=== PATIENT | male | born 1935 ===

== ENCOUNTER 2017-04-29 13:23 | Emergency (ER) | payer OTHER ==
[2017-04-29] MEDS ORDERED: Lidocaine 1% w Epi 1:100,000 Inj INJ STA (14:18)
[2017-04-29] MEDS ORDERED: Tetanus/Diphtheria Toxoids 0.5 ml Syringe IM ONE ×2 (14:18→15:11)
[2017-04-29] MEDS ORDERED: Bacitracin 500 Units/gm Oint Foilpak UD TOP STA (14:18)
[2017-04-29] MEDS ORDERED: Bacitracin 500 Units/gm Oint Foilpak UD ONE (14:25)
[2017-04-29] MEDS ORDERED: Lidocaine 2% w Epi 1:100,000 Inj IJ ONE (14:26)
--- NOTE | 2017-04-29 15:32 | C.PDOC ---
History Of Present Illness 81 year old male presents to the ER with a complaint of a laceration after he was trying to reach for something on the street and cut his left hand on a piece of glass at 14:00 yesterday. Patient did not think it was serious at the time and covered it up; however, wound is still bleeding which prompted evaluation of laceration. Denies weakness or numbness. Time Seen by Provider: 04/29/17 13:38 Chief Complaint (Nursing): Abnormal Skin Integrity History Per: Patient History/Exam Limitations: no limitations Onset/Duration Of Symptoms: Days Current Symptoms Are (Timing): Still Present Location Of Injury: Left: Hand Quality Of Symptoms: Other (Laceration) Recent travel outside of the [place]: No Past Medical History Reviewed: Historical Data, Nursing Documentation, Vital Signs Vital Signs: Last Vital Signs Temp 97.9 F 04/29/17 15:47 Pulse 74 04/29/17 15:47 Resp 18 04/29/17 15:47 BP 129/74 04/29/17 15:47 Pulse Ox 97 04/29/17 19:01 - Medical History PMH: Diabetes, HTN, Hypercholesterolemia Surgical History: No Surg Hx Family History: States: Unknown Family Hx - Social History Hx Tobacco Use: No Hx Alcohol Use: No Hx Substance Use: No - Immunization History Hx Tetanus Toxoid Vaccination: Yes (2014) Hx Influenza Vaccination: Yes (2 months) Hx Pneumococcal Vaccination: Yes (2 month) Review Of Systems Skin: Positive for: Other (Laceration) Neurological: Negative for: Weakness, Numbness Physical Exam - Physical Exam Appears: Non-toxic, No Acute Distress Skin: Normal Color, Warm, Dry Head: Atraumatic, Normacephalic Extremity: Capillary Refill (<2 seconds), Other (3.5cm laceration over dorsum of left hand starting from the proximal phalanx of the 2nd finger extending to the 2nd MCP joint, actively bleeding, able to move fingers) Pulses: Left Radial: Normal, Right Radial: Normal Neurological/Psych: Oriented x3, Normal Speech, Normal Cognition, Normal Motor, Normal Sensation ED Course And Treatment O2 Sat by Pulse Oximetry: 97 (Room air) Pulse Ox Interpretation: Normal Progress Note: Patient tolerated laceration repair without difficulty, bacitracin applied, patient placed in finger splint. Patient started on keflex and instructed to follow up on Thursday for wound check. Tetanus vaccination administered. Laceration - Laceration Repair Left hand Wound Length (In cm): 3.5 Description Of Wound: Irregular Wound Cleansed With: Sterile Saline (2 liters) Anesthesia: Lidocaine 1% Wound Examination: Irrigated With Saline (2 liters), No FB With Wound Exploration, No Tendon Injury With Wound Exploration Wound Closure: Suture (x 6) Suture Technique And Material Used: Nylon (4-0) Wound Complexity: Intermediate Disposition - Disposition Disposition: HOME/ ROUTINE Disposition Time: 15:30 Condition: STABLE Additional Instructions: Follow up with PMD within 1-2 days. Return to ED if feel worse. Return to ED for wound check in 2 days. Prescriptions: Bacitracin OINT 1 applic TP TID #45 g Cephalexin [cephalexin] 500 mg PO Q6 #28 cap Instructions: Care For Your Stitches (ED), Laceration (ED) Forms: [employer] (Chinese) Print Language: AZERI - Clinical Impression Clinical Impression: Laceration - Scribe Statement The provider has reviewed the documentation as recorded by the Scribarturo Guidry All medical record entries made by the Otiliaibarturo were at my direction and personally dictated by me. I have reviewed the chart and agree that the record accurately reflects my personal performance of the history, physical exam, medical decision making, and the department course for this patient. I have also personally directed, reviewed, and agree with the discharge instructions and disposition.
[2017-04-29 15:48] VITALS: BP 129/74; PULSE 74; RESP 18; TEMP 97.9
[2017-04-29 18:54] VITALS: O2SAT 97
== END 2017-04-29 15:49 | disposition home or self-care (01) ==
LOC: C.ER 13:23
DX: S61.412A Laceration without foreign body of left hand, initial encounter (principal); W25.XXXA Contact with sharp glass, initial encounter; Y93.89 Activity, other specified; Y92.410 Unspecified street and highway as the place of occurrence of the external cause; Z23 Encounter for immunization

== ENCOUNTER 2017-05-01 10:50 | Emergency (ER) | payer OTHER ==
[2017-05-01] MEDS ORDERED: Bacitracin 500 Units/gm Oint Foilpak UD ONE (11:32)
[2017-05-01 12:42] VITALS: BP 135/70; PULSE 67; RESP 20; TEMP 97.9; O2SAT 97
--- NOTE | 2017-05-01 12:44 | C.PDOC ---
History Of Present Illness 81 year old male presents to the ED for a wound check. Patient was evaluated in this ED on 04/29 after he sustained a laceration to his left index finger. Patient received sutures to the area and was discharged with a finger splint. Patient has the finger splint intact, but notes he experiences a "poking pain" even with slight finger movement. Patient denies fever, chills, or discharge from the area. Time Seen by Provider: 05/01/17 11:25 Chief Complaint (Nursing): Abnormal Skin Integrity History Per: Patient History/Exam Limitations: no limitations Onset/Duration Of Symptoms: Days (2) Current Symptoms Are (Timing): Still Present Location Of Injury: Left: Hand (index finger) Quality Of Symptoms: Painful Additional History Per: Patient Past Medical History Reviewed: Historical Data, Nursing Documentation, Vital Signs Vital Signs: Last Vital Signs Temp 97.9 F 05/01/17 12:41 Pulse 67 05/01/17 12:41 Resp 20 05/01/17 12:41 BP 135/70 05/01/17 12:41 Pulse Ox 97 05/01/17 15:18 - Medical History PMH: Diabetes, HTN, Hypercholesterolemia Surgical History: No Surg Hx Family History: States: Unknown Family Hx - Social History Hx Tobacco Use: No Hx Alcohol Use: No Hx Substance Use: No - Immunization History Hx Tetanus Toxoid Vaccination: Yes (2014) Hx Influenza Vaccination: Yes (2 months) Hx Pneumococcal Vaccination: Yes (2 month) Review Of Systems Constitutional: Negative for: Fever, Chills Musculoskeletal: Positive for: Other (wound check on left index finger ) Physical Exam - Physical Exam Appears: Non-toxic, No Acute Distress Skin: Normal Color, Warm, Dry Extremity: No Tenderness, Capillary Refill (less than 2 seconds ), No Swelling, Other (finger splint in place on left index finger ) Neurological/Psych: Oriented x3, Normal Speech, Normal Cognition, Normal Sensation ED Course And Treatment O2 Sat by Pulse Oximetry: 97 (on RA) Pulse Ox Interpretation: Normal Progress Note: Left hand 2nd digit XR ordered. XR results show no evidence of fracture or foreign body. Finger splint was removed. Sutures are intact and wound is healing with no signs of infection or drainage. Wound was cleaned and bacitracin applied to the area. Area was covered and finger splint was reapplied. On reassessment, patient is resting comfortably and showing no signs of distress. Patient is stable for discharge and is advised to follow up in [place] 2 days for wound check. Disposition - Disposition Referrals: Carlos Monet MD [Staff Provider] - Disposition: HOME/ ROUTINE Disposition Time: 12:42 Condition: STABLE Additional Instructions: Follow up with Hand specialist within 1-2 days. Return to Ed if feel worse. Return to ED in 2 days for wound check. Instructions: Acute Wound Care (ED) Forms: [employer] (Guyanese) - Clinical Impression Clinical Impression: Visit for wound check - PA / ADAPTIVE PHYSICAL EDUCATION SPECIALIST / Resident Statement MD/DO has reviewed & agrees with the documentation as recorded. - Scribe Statement The provider has reviewed the documentation as recorded by the Scribe (Alicia East) All medical record entries made by the Scribe were at my direction and personally dictated by me. I have reviewed the chart and agree that the record accurately reflects my personal performance of the history, physical exam, medical decision making, and the department course for this patient. I have also personally directed, reviewed, and agree with the discharge instructions and disposition.
--- NOTE | 2017-05-01 13:21 | RAD ---
PROCEDURE: Left Index finger radiographs. HISTORY: laceration COMPARISON: None. TECHNIQUE: AP radiograph of the left hand, as well as spot oblique and lateral images of index finger were obtained. FINDINGS: LEFT INDEX FINGER: Normal left index finger, without fracture or focal lesion. No fracture seen elsewhere. JOINTS: Osteoarthritis of DIP 2 through 5 and IP 1. Osteoarthritis of PIP 2. MCP joints are unremarkable. SOFT TISSUES: No radiopaque foreign body OTHER FINDINGS: None. IMPRESSION: Osteoarthritis of multiple interphalangeal joints. No evidence of fracture or radiopaque foreign body.
== END 2017-05-01 13:04 | disposition home or self-care (01) ==
LOC: C.ER 10:50
DX: Z51.89 Encounter for other specified aftercare (principal)

== ENCOUNTER 2017-05-03 11:14 | Emergency (ER) | payer OTHER ==
[2017-05-03 11:19] VITALS: BP 161/71; PULSE 66; RESP 18; TEMP 97.3; O2SAT 97
[2017-05-03] MEDS ORDERED: Bacitracin 500 Units/gm Oint Foilpak UD ONE (11:32)
--- NOTE | 2017-05-03 11:39 | C.PDOC ---
History Of Present Illness 81 year old male presents to the ED for a wound check. Patient was evaluated in this ED on 04/29 after he sustained a laceration to his left index finger. Patient was re-evaluated in ED on 05/01 and advised to return in 2 days for wound check. Patient states the pain has been improving and he has been taking his antibiotics as prescribed. Patient denies fever, chills, or discharge from the area. Time Seen by Provider: 05/03/17 11:29 Chief Complaint (Nursing): Wound Check History Per: Patient History/Exam Limitations: no limitations Onset/Duration Of Symptoms: Days Ago Current Symptoms Are (Timing): Still Present Location Of Injury: Left: Hand (index finger ) Quality Of Symptoms: Painful (improving ). denies: Itching, Swollen, Draining Additional History Per: Patient Past Medical History Reviewed: Historical Data, Nursing Documentation, Vital Signs Vital Signs: Last Vital Signs Temp 97.3 F L 05/03/17 11:17 Pulse 66 05/03/17 11:17 Resp 18 05/03/17 11:17 BP 161/71 H 05/03/17 11:17 Pulse Ox 97 05/03/17 15:24 - Medical History PMH: Diabetes, HTN, Hypercholesterolemia Surgical History: No Surg Hx Family History: States: Unknown Family Hx - Social History Hx Tobacco Use: No Hx Alcohol Use: No Hx Substance Use: No - Immunization History Hx Tetanus Toxoid Vaccination: Yes (2014) Hx Influenza Vaccination: Yes (2 months) Hx Pneumococcal Vaccination: Yes (2 month) Review Of Systems Constitutional: Negative for: Fever, Chills Skin: Positive for: Other (wound check on left index finger. no discharge ) Physical Exam - Physical Exam Appears: Non-toxic, No Acute Distress Skin: Normal Color, Warm, Dry, Other (intact finger splint on left index finger ) Extremity: Normal ROM, Capillary Refill (less than 2 seconds ) Neurological/Psych: Oriented x3, Normal Speech, Normal Cognition ED Course And Treatment O2 Sat by Pulse Oximetry: 97 (on RA) Pulse Ox Interpretation: Normal Progress Note: Finger splint was removed. Wound is well-healing, with no erythema, discharge, or signs of infection. Wound was cleaned and dry, sterile dressing was applied. Patient is stable for discharge and is advised to follow up within 8-10 days for suture removal. Disposition - Disposition Disposition: HOME/ ROUTINE Disposition Time: :37 Condition: STABLE Additional Instructions: Follow up with PMD and Hand specialist as previously instructed. Return to ED if feel worse. Suture removal in in 8-10 days. Instructions: Acute Wound Care (ED) Forms: [employer] (Korean) Print Language: TURKMEN - Clinical Impression Clinical Impression: Visit for wound check - PA / STAGE BUILDER / Resident Statement MD/DO has reviewed & agrees with the documentation as recorded. - Scribe Statement The provider has reviewed the documentation as recorded by the Scribe (Alicia East) All medical record entries made by the Scribe were at my direction and personally dictated by me. I have reviewed the chart and agree that the record accurately reflects my personal performance of the history, physical exam, medical decision making, and the department course for this patient. I have also personally directed, reviewed, and agree with the discharge instructions and disposition.
== END 2017-05-03 11:44 | disposition home or self-care (01) ==
LOC: C.ER 11:14
DX: Z48.00 Encounter for change or removal of nonsurgical wound dressing (principal)

== ENCOUNTER 2017-07-18 09:05 | Emergency (ER) | payer OTHER ==
[2017-07-18 09:16] VITALS: BP 138/69; PULSE 101; RESP 18; TEMP 98; O2SAT 96
--- NOTE | 2017-07-18 09:26 | C.PDOC ---
History Of Present Illness Pt is an 81 yr old male who states pt with 3 days of bodyaches and throat hurts and cough. Cough is dry. Tactile fever at home. Pt did have a flu shot in January. Pt lives w/ a lady with flu like symptoms. PMD: Dr. Nguyen? Time Seen by Provider: 07/18/17 09:23 Chief Complaint (Nursing): Flu-like Symptoms History Per: Patient Onset/Duration Of Symptoms: Days Past Medical History Reviewed: Historical Data, Nursing Documentation, Vital Signs Vital Signs: Last Vital Signs Temp 98 F 07/18/17 09:14 Pulse 101 H 07/18/17 09:14 Resp 18 07/18/17 09:14 BP 138/69 07/18/17 09:14 Pulse Ox 96 07/18/17 09:42 - Medical History PMH: Diabetes, HTN, Hypercholesterolemia Family History: States: Diabetes - Social History Hx Tobacco Use: No Hx Alcohol Use: No Hx Substance Use: No - Immunization History Hx Tetanus Toxoid Vaccination: Yes (2014) Hx Influenza Vaccination: Yes (2 months) Hx Pneumococcal Vaccination: Yes (2 month) Review Of Systems Except As Marked, All Systems Reviewed And Found Negative. Constitutional: Positive for: Fever ENT: Positive for: Throat Pain Respiratory: Positive for: Cough Gastrointestinal: Negative for: Vomiting Physical Exam - Physical Exam Appears: Well, Non-toxic, No Acute Distress Skin: Normal Color, Warm, Dry Head: Atraumatic Eye(s): bilateral: Normal Inspection, EOMI Ear(s): Bilateral: Normal Nose: Normal Oral Mucosa: Moist Tongue: Normal Appearing Lips: Normal Appearing Throat: Erythema Neck: Normal Cardiovascular: Rhythm Regular Respiratory: Rhonchi (left lung base) Back: Normal Inspection Extremity: Normal ROM Extremity: Bilateral: Atraumatic Neurological/Psych: Oriented x3, Normal Motor, Normal Sensation ED Course And Treatment O2 Sat by Pulse Oximetry: 96 Medical Decision Making Medical Decision Making: Initial impression: influenza like illness Initial plan: D/C w/ rx for Tamiflu; but will also d/c on Zithormax for concern of developing secondary pneumonia infection . Disposition - Disposition Disposition: HOME/ ROUTINE Disposition Time: 09:36 Condition: STABLE Additional Instructions: Mr. Arciniega, thank you for letting us take care of you today. Return to the ER if your symptoms worsen, or if any problems. Take the medication listed below as prescribed. Follow up with your doctor in 1-2 days for a re-evaluation. Prescriptions: Azithromycin [Zithromax] 1 tab PO DAILY #7 tab Oseltamivir Phosphate [Tamiflu] 1 tab PO BID #10 capsule Instructions: Influenza (ED) Forms: [employer] (French) Print Language: GEORGIAN - POA Present On Arrival: None - Clinical Impression Clinical Impression: Influenza-like illness
== END 2017-07-18 09:51 | disposition home or self-care (01) ==
LOC: C.ER 09:05
DX: J11.1 Influenza due to unidentified influenza virus with other respiratory manifestations (principal)

== ENCOUNTER 2017-09-16 11:28 | Emergency (ER) | payer OTHER ==
[2017-09-16 11:34] VITALS: BMI 25.2
--- NOTE | 2017-09-16 12:48 | C.PDOC ---
History Of Present Illness 82 y/o male presents to ED with complaints of left sided abdominal pain and back pain for 8 days with associated itchy rash on left side of back. Patient denies fever, chills, nausea, vomiting, diarrhea or any other complaints at this time. Time Seen by Provider: 09/16/17 12:15 Chief Complaint (Nursing): Abdominal Pain History Per: Patient History/Exam Limitations: no limitations Onset/Duration Of Symptoms: Days Current Symptoms Are (Timing): Still Present Location Of Pain/Discomfort: LUQ Radiation Of Pain To:: None Associated Symptoms: Back Pain Exacerbating Factors: Movement Past Medical History Reviewed: Historical Data, Nursing Documentation, Vital Signs Vital Signs: Last Vital Signs Temp 97.9 F 09/16/17 15:11 Pulse 60 09/16/17 15:11 Resp 16 09/16/17 15:11 BP 168/61 H 09/16/17 15:11 Pulse Ox 98 09/16/17 15:11 - Medical History PMH: Diabetes, HTN, Hypercholesterolemia Surgical History: No Surg Hx Family History: States: No Known Family Hx, Diabetes - Social History Hx Tobacco Use: No Hx Alcohol Use: No Hx Substance Use: No - Immunization History Hx Tetanus Toxoid Vaccination: Yes (2014) Hx Influenza Vaccination: Yes (2 months) Hx Pneumococcal Vaccination: Yes (2 month) Review Of Systems Constitutional: Negative for: Fever, Chills Cardiovascular: Negative for: Chest Pain Gastrointestinal: Positive for: Abdominal Pain. Negative for: Nausea, Vomiting Musculoskeletal: Positive for: Back Pain Skin: Positive for: Rash Physical Exam - Physical Exam Appears: Non-toxic, No Acute Distress Skin: Warm, Dry, Rash (left side of back 6 pimples maculopapular noted to one area ) Head: Atraumatic, Normacephalic Eye(s): bilateral: Normal Inspection Oral Mucosa: Moist Neck: Normal ROM, Supple Cardiovascular: Rhythm Regular Respiratory: Normal Breath Sounds, No Rales, No Rhonchi, No Wheezing Gastrointestinal/Abdominal: Tenderness (Mild LUQ), No Guarding, No Rebound Back: No CVA Tenderness Extremity: Normal ROM, Capillary Refill (<2 seconds) Neurological/Psych: Oriented x3, Normal Speech Gait: Steady ED Course And Treatment - Laboratory Results Result Diagrams: 09/16/17 13:44 09/16/17 13:44 Lab Interpretation: No Acute Changes O2 Sat by Pulse Oximetry: 99 (RA) Pulse Ox Interpretation: Normal Progress Note: On re-evaluation abdomen soft non-tender. Discharged in stable condition Reassessment Condition: Unchanged Disposition Counseled Patient/Family Regarding: Studies Performed, Diagnosis, Need For Followup, Rx Given - Disposition [facility]errals[facility]Outside[facility] Disposition: HOME/ ROUTINE Disposition Time: 15:00 Condition: STABLE Prescriptions: Famciclovir 500 mg PO Q8 #21 tablet Instructions: Shingles Forms: [employer] (Paraguayan) - POA Present On Arrival: None - Clinical Impression Clinical Impression: Abdominal pain, Shingles rash - PA / DESIGN TRANSFERRER / Resident Statement MD/DO has reviewed & agrees with the documentation as recorded. - Scribe Statement The provider has reviewed the documentation as recorded by the Hayder Sanderson All medical record entries made by the Otiliaibarturo were at my direction and personally dictated by me. I have reviewed the chart and agree that the record accurately reflects my personal performance of the history, physical exam, medical decision making, and the department course for this patient. I have also personally directed, reviewed, and agree with the discharge instructions and disposition.
[2017-09-16 13:56] LABS: BASO # 0.1 K/uL (0.0-0.2); BASO % 0.9 % (0.0-2.0); EOS # 0.3 K/uL (0.0-0.7); EOS % 3.9 % (0.0-4.0); HEMOGLOBIN 12.5 g/dL (12.0-18.0); LYMPH % 26.5 % (20.0-40.0); MEAN CELL VOLUME 91.6 fL (80.0-94.0); MEAN CORPUSCULAR HGB CONC 33.9 g/dL (33.0-37.0); MONO # 0.5 K/uL (0.0-0.8); MONO % 7.2 % (0.0-10.0); NEUT # 4.7 K/uL (1.8-7.0); NEUT % 61.5 % (50.0-75.0); NRBC % 0.1 % (0.0-2.0); RBC 4.03 Mil/uL (4.40-5.90); RED CELL DISTRIBUTION WIDTH 13.4 % (11.5-14.5); WHITE BLOOD COUNT 7.6 K/uL (4.8-10.8)
[2017-09-16 14:02] LABS: ALB/GLOB RATIO 1.4 (1.0-2.1); ALBUMIN 3.6 g/dL (3.5-5.0); ALT/SGPT 21 U/L (21-72); AST/SGOT 32 U/L (17-59); BLOOD UREA NITROGEN 18 mg/dL (9-20); CALCIUM 8.9 mg/dl (8.6-10.4); GFR AFRICAN-AMERICAN > 60; GFR NON-AFRICAN AMERICAN > 60
[2017-09-16 14:26] LABS: URINE BILIRUBIN NEGATIVE (NEGATIVE); URINE BLOOD NEGATIVE (NEGATIVE); URINE CLARITY Clear (Clear); URINE COLOR Straw (YELLOW); URINE GLUCOSE (UA) 3+ mg/dL (Normal); URINE LEUKOCYTE ESTERASE NEG Leu/uL (Negative); URINE PROTEIN NEGATIVE (NEGATIVE); URINE UROBILINOGEN NORMAL mg/dL (0.2-1.0)
[2017-09-16 15:13] VITALS: BP 168/61; PULSE 60; RESP 16; TEMP 97.9
[2017-09-16 17:40] VITALS: O2SAT 99
== END 2017-09-16 15:16 | disposition home or self-care (01) ==
LOC: C.ER 11:28
DX: B02.9 Zoster without complications (principal); R10.9 Unspecified abdominal pain; I10 Essential (primary) hypertension; E11.9 Type 2 diabetes mellitus without complications; E78.00 Pure hypercholesterolemia, unspecified